=== PATIENT | female | born 1955 | race Caucasian/White ===

== ENCOUNTER 2018-04-13 13:03 | Outpatient (CLI) | payer MEDICARE ==
--- NOTE | 2018-04-13 14:14 | XRAY Report ---
Procedure Date: 04/13/2018 Accession Number: [id number] / [id number] Procedure: XR - Lumbar Spine 2 View CPT Code: FULL RESULT: EXAM: Lumbar Spine 2 View DATE: 04/13/2018 1:27 PM CLINICAL HISTORY: CHRONIC LBP WITH SCIATICA COMPARISON: 10/04/2015. TECHNIQUE: 2 views. FINDINGS: The patient is status post L4-S1 posterior lumbar fusion with stable anterolisthesis of L4 on L5 and no evidence of hardware failure. Thoracolumbar S-shaped scoliosis is stable. Advanced degenerative changes including facet arthropathy and endplate changes appear similar to 2016. There is marked atherosclerosis of the abdominal aorta. The visualized bowel gas pattern is unremarkable. IMPRESSION: Stable appearance of the lumbar spine including scoliosis and anterolisthesis of L4 on L5 status post L4-S1 posterior fusion. RADIA
== END 2018-04-13 13:04 | disposition home or self-care (01) ==
LOC: DI 13:03
PROVIDERS: ATTEND Family Medicine
DX: M47.896 Other spondylosis, lumbar region (principal); M51.36 Other intervertebral disc degeneration, lumbar region; M43.16 Spondylolisthesis, lumbar region; M41.85 Other forms of scoliosis, thoracolumbar region
CPT/HCPCS: 72100

== ENCOUNTER 2018-11-04 13:55 | Outpatient (CLI) | payer MEDICARE | END 2018-11-04 13:56 | disposition home or self-care (01) | LOC: DI 13:55 | PROVIDERS: ATTEND Family Medicine | DX: R00.2 Palpitations (principal); R07.9 Chest pain, unspecified; Z13.6 Encounter for screening for cardiovascular disorders; Z53.9 Procedure and treatment not carried out, unspecified reason ==

== ENCOUNTER 2018-11-18 09:58 | Outpatient (CLI) | payer MEDICARE ==
[2018-11-18] MEDS ORDERED: REGADENOSON 0.4 MG/5 ML SYRINGE IVP ONE ×2 (10:06→15:53)
[2018-11-18] MEDS ORDERED: AMINOPHYLLINE 250 MG/10 ML VIAL ONE (10:07)
--- NOTE | 2018-11-18 12:03 | CARDIAC PROCEDURE NOTE ---
DATE OF SERVICE: 11/18/2018 Physician: Deborah Gregorio MD, [facility] INDICATIONS: Chest pain. CARDIAC RISK FACTORS: Obesity, postmenopausal status, very remote ex-smoker. PROCEDURE: After signing informed consent, the patient underwent a Lexiscan pharmaceutical stress test with nuclear myocardial perfusion imaging. RESTING HEART RATE: 72. PEAK HEART RATE: 91. RESTING BLOOD PRESSURE: 129/72. PEAK BLOOD PRESSURE: 150/75. Lexiscan was infused per protocol. The patient developed mild flushing and mild shortness of breath. Her saturation was 98% on room air at this point. She did not experience her typical chest pain. The SOB symptom subsided after 4 minutes. RESTING ELECTROCARDIOGRAM: Normal sinus rhythm, right atrial enlargement, left IVCD. ELECTROCARDIOGRAM AT PEAK: No ischemic changes by EKG criteria. SUMMARY 1. The patient had mild shortness of breath, but no chest pain during this pharmaceutical stress test. 2. No ischemic changes by EKG criteria on this pharmaceutical stress test. 3. Nuclear images are reported separately. TD: 11/18/2018 11:34 MTDD
--- NOTE | 2018-11-19 14:01 | Nuclear Medicine Report ---
Reason: CHEST PAIN, PALPITATIONS Procedure Date: 11/19/2018 Accession Number: [id number] / [id number] Procedure: NM - Myocardial Perfusion STR/RST CPT Code: FULL RESULT: EXAM: SINGLE-ISOTOPE PHARMACOLOGICAL STRESS TEST WITH REGADENOSON. SINGLE-ISOTOPE AND TWO-DAY REST/STRESS MYOCARDIAL PERFUSION SCANS WITH TOMOGRAPHIC IMAGING, QUANTITATIVE ANALYSIS, WALL MOTION ANALYSIS AND CALCULATION OF EJECTION FRACTION. EXAM DATE: 11/19/2018 11:28 AM. CLINICAL HISTORY: CHEST PAIN, PALPITATIONS. COMPARISON: None available. TECHNIQUE: A pharmacological stress was performed with the infusion of 0.4 mg regadenoson per protocol. According to protocol, 25.9 mCi of Tc-99m sestamibi was injected for stress myocardial perfusion scan. Motion correction was applied when appropriate. The following day after the intravenous administration of 26.9 mCi of Tc-99m sestamibi, a rest myocardial perfusion scan was done with tomography. Motion correction was applied when appropriate. Gated tomographic images were obtained for wall motion analysis and computation of left ventricular ejection fraction. FINDINGS: On visual analysis, there is a partially fixed and partially reversible moderate severity defect involving the anterior and anteroseptal wall. Computer analysis. Summed stress score 10 Summed rest score 2 Summed difference score 8 Wall motion analysis demonstrates septal hypokinesis. The left ventricular end-diastolic volume is 70 cc. The left ventricular end-systolic volume is 12 cc. The left ventricular ejection fraction is calculated to be 82%. IMPRESSION: 1. On visual analysis, partially fixed and partially reversible moderate severity defect in the anterior and anteroseptal orellana. On computer analysis, moderately abnormal study with moderate ischemia. Based on visual analysis, the degree of reversibility is suspected to be overestimated on the computer generated analysis. 2. Left ventricular ejection fraction of >65%. 3. There is apparent septal hypokinesis. 4. Normal left ventricular cavity size, no change with stress. RADIA
== END 2018-11-18 09:59 | disposition home or self-care (01) ==
LOC: DI 09:58
PROVIDERS: ATTEND Family Medicine
DX: R94.39 Abnormal result of other cardiovascular function study (principal); R07.9 Chest pain, unspecified; R00.2 Palpitations; R06.02 Shortness of breath
CPT/HCPCS: 78452; 93016; 93017; 93018; A9500; J2785

== ENCOUNTER 2020-12-22 16:41 | Outpatient (CLI) | payer MEDICARE ==
--- NOTE | 2020-12-22 17:17 | CT Report ---
PROCEDURE: Abdomen/Pelvis WO INDICATIONS: RIGHT FLANK PAIN TECHNIQUE: Noncontrast 5 mm thick sections acquired from the diaphragms to the symphysis. 5 mm coronal and sagi ttal reformats were then performed. For radiation dose reduction, the following was used: automated exposure control, adjustment of mA and/or kV according to patient size. COMPARISON: None. FINDINGS: Image quality: Excellent. ABDOMEN: Lung bases: Lung bases are clear. Heart size is normal. Solid organs: Liver and spleen are normal in size. Gallbladder contains 2 small dependent layering gallstones, without evidence of acute cholecystitis or adjacent biliary obstruction Pancreas is norm al in contours. No adrenal nodules. Kidneys are normal in size, without hydronephrosis or nephrolit hiasis. Peritoneum and bowel: Unenhanced bowel loops demonstrate normal wall thickness and caliber. No free fluid or air. Nodes and vessels: No retroperitoneal or mesenteric adenopathy by size criteria. Aorta and inferior vena cava are normal in caliber. Miscellaneous: No ventral hernias. PELVIS: Genitourinary: Bladder wall thickness is normal. Miscellaneous: No inguinal hernias or adenopathy. Bones: No suspicious bony lesions. No vertebral body compression fractures. IMPRESSION: A urinary tract stone is not found, no urinary tract inflammation. A source of right-sided flank pain is not identified. Note is made of 2 right-sided gallstones, small in size measuring approximately 3 mm-4 mm each within the gallbladder lumen which shows no evidence of obstruction or inflammation. Reviewed by: Abdon Gamboa MD on 12/22/2020 5:16 PM PDT Approved by: Abdon Gamboa MD on 12/22/2020 5:16 PM PDT Station ID: [id number]
== END 2020-12-22 16:42 | disposition home or self-care (01) ==
LOC: DI 16:41
PROVIDERS: ATTEND Family Medicine
DX: R10.9 Unspecified abdominal pain (principal); K80.20 Calculus of gallbladder without cholecystitis without obstruction

== ENCOUNTER 2023-02-13 12:24 | Outpatient (CLI) | payer MEDICARE ==
--- NOTE | 2023-02-13 21:38 | Ultrasound Report ---
PROCEDURE: Ankle Brachial Index INDICATIONS: POLYNEUROPATHY TECHNIQUE: Ankle-brachial indices were obtained bilaterally and recorded. COMPARISONS: None. FINDINGS: Right ankle brachial index (JAIRON): 1.16 Left ankle brachial index (JAIRON): 1.21 Healing potential: Ankle pressures >55 mm Hg in non-diabetics and >80 mm Hg in diabetics are likely to achieve primary h ealing of ischemic foot ulcers. Toe pressures >30 mm Hg are likely to achieve primary healing of ischemic foot ulcers, toe or transme tatarsal amputations. IMPRESSION: Normal bilateral JAIRON as above. Reviewed by: Jonn Ordoñez MD on 02/13/2023 9:37 PM PDT Approved by: Jonn Ordoñez MD on 02/13/2023 9:37 PM PDT Station ID: [id number]
== END 2023-02-13 12:25 | disposition home or self-care (01) ==
LOC: DI 12:24
PROVIDERS: ATTEND Family Medicine
DX: G62.9 Polyneuropathy, unspecified (principal)
CPT/HCPCS: 93922

== ENCOUNTER 2023-08-06 13:42 | Outpatient (CLI) | payer MEDICARE | END 2023-08-06 23:59 | disposition EMS.NT | LOC: EMS 13:42 | DX: Z03.89 Encounter for observation for other suspected diseases and conditions ruled out (principal) ==

== ENCOUNTER 2024-04-08 15:10 | Outpatient (CLI) | payer MEDICARE ==
--- NOTE | 2024-04-09 12:41 | MRI Report ---
PROCEDURE: Shoulder LT WO INDICATIONS: L SHOULDER PAIN TECHNIQUE: Noncontrast oblique coronal T2 fast spin echo with fat saturation, oblique sagittal T1 spin echo and T2 fast spin echo with fat saturation, axial T1 spin echo and T2 fast spin echo with fat saturation t hrough the shoulder. COMPARISON: None. FINDINGS: Image quality: Excellent. Rotator cuff: There is prior rotator cuff tendon repair with postsurgical changes. Suggestion of full -thickness rupture involving distal supraspinatus at its insertion on humeral head with up to 2.8 cm medial retraction of torn tendon fibers to the level of acromium is seen. Low-grade articular surface partial-thickness involving distal infraspinatus at its insertion on humeral head is noted. Low-grad e intrasubstance partial thickness tear involving distal subscapularis is seen. Moderate to severe see praspinatus muscle atrophy is seen on sagittal images. Mild infraspinatus muscle atrophy is also not ed. Bones and bursae:/Superior migration of humeral head in relation to glenoid is noted. Expected postsu rgical widening of acromioclavicular joint. Postsurgical changes also seen in anterior and lateral as pect of humeral head. No acute fracture or dislocation. Moderate to severe glenohumeral joint osteoar thritic changes are seen. There is moderate amount of joint fluid and subacromial subdeltoid bursal f luid. No definite loose bodies. Capsule and soft tissues: The global signal abnormality throughout left glenoid labrum is seen sugges tive of extensive labral tear. There is proximal long head of biceps tenodesis with intact biceps ten don to the level of surgery. The rotator interval appears normal, without fibrosis. The coracohumer al ligament is normal in thickness. IMPRESSION: 1. Prior rotator cuff tendon repair with postsurgical changes. Moderate to severe glenohumeral joint osteoarthritis. Expected postsurgical widening of acromioclavicular joint. No acute fracture or dislo cation. Slight superior migration of humeral head in relation to glenoid. Moderate joint effusion and subacromial subdeltoid bursal fluid, no gross loose bodies. 2. High-grade partial to full-thickness rupture involving distal supraspinatus at its insertion on hu meral head with up to 2.8 cm medial retraction of torn tendon fibers to the level of acromion. Modera te to severe supraspinatus muscle atrophy. 3. Low-grade articular surface partial-thickness involving distal infraspinatus. Low-grade intrasubst ance partial thickness tear involving distal subscapularis. Mild infraspinatus muscle atrophy. 4. Suggestion of extensive left glenoid labral tear. 5. Prior proximal long head of biceps tenodesis with intact biceps tendon to the level of surgery. Reviewed by: Jonn Luke MD on 04/09/2024 12:40 PM PDT Approved by: Jonn Luke MD on 04/09/2024 12:40 PM PDT Station ID: [id number]
== END 2024-04-08 15:11 | disposition home or self-care (01) ==
LOC: DI 15:10
PROVIDERS: ATTEND Family Medicine
DX: M19.012 Primary osteoarthritis, left shoulder (principal); M71.812 Other specified bursopathies, left shoulder; M25.412 Effusion, left shoulder; M62.512 Muscle wasting and atrophy, not elsewhere classified, left shoulder; M75.112 Incomplete rotator cuff tear or rupture of left shoulder, not specified as traumatic

== ENCOUNTER 2024-05-24 10:03 | Outpatient (CLI) | payer MEDICARE ==
[2024-05-24] MEDS ORDERED: iohexoL-300 100 ML VIAL ONE (10:21)
[2024-05-24] MEDS ORDERED: DIATRIZOATE MEGLU/DIATRIZO SOD 30 ML BOTTLE PO ONE (10:21)
[2024-05-24] MEDS: iohexoL-300 100 ML VIAL IVP ONE (13:07)
[2024-05-24] MEDS: DIATRIZOATE MEGLU/DIATRIZO SOD 30 ML BOTTLE PO ONE (13:08)
--- NOTE | 2024-05-24 16:03 | CT Report ---
PROCEDURE: Abdomen/Pelvis W INDICATIONS: LLQ PAIN CONTRAST: Omni 300 100ml TECHNIQUE: After the administration of intravenous contrast, a CT scan of the abdomen and pelvis was performed. Images were recorded and evaluated at appropriate window settings. Reformats: coronal and sagittal. F or radiation dose reduction, the following was used: automated exposure control, adjustment of mA and /or kV according to patient size. COMPARISON: CT abdomen/pelvis 12/22/2020. FINDINGS: Image quality: Diagnostic. Lower chest: Unremarkable. Liver: No solid mass. Gallbladder: Gallbladder is mildly distended and contains a few small calcified gallstones. No surrou nding inflammatory changes are seen. Biliary tree: No intrahepatic or extrahepatic dilation, accounting for age. Spleen: No splenomegaly. Pancreas: No pancreatic ductal dilation. Adrenals: No adrenal nodule. Kidneys and ureters: No hydronephrosis. No renal cystic lesion which requires follow up. No solid mas s. Stomach, bowel and peritoneum: No gastric or small bowel dilation. 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 No abnormal wall thickening. No pathologic free fluid. Multiple diverticula are seen in the colon without signs of acute diverticulitis. Moderate to large volume of colonic stool. Lymph nodes: No central or retroperitoneal adenopathy. Vessels: No infrarenal aortic aneurysm. Patent portal vein. Moderate aortic atherosclerotic ossificat ions. PELVIS Reproductive organs: Unremarkable. Bladder: No abnormal wall thickening, accounting for underdistention. Pelvic lymph nodes: No pelvic adenopathy by size criteria. Bones: No aggressive osseous abnormality. Postsurgical changes are seen in the lumbar spine. Multilev el degenerative changes. No acute osseous abnormality identified. Other: Fat-containing right lower abdominal ventral hernia is noted. IMPRESSION: 1.Moderate to large volume of colonic stool. Recommend correlation for constipation. Otherwise, no so urce for the reported left lower quadrant pain identified. 2.Colonic diverticulosis without signs of acute diverticulitis. 3.Cholelithiasis with mild gallbladder distention. No surrounding inflammatory changes. If there is c oncern for acute cholecystitis consider ultrasound evaluation. 4.Right lower abdominal fat-containing ventral hernia. Reviewed by: Crispin Cowan MD on 05/24/2024 3:02 PM [place] Approved by: Crispin Cowan MD on 05/24/2024 3:02 PM [place] Station ID: [id number]
== END 2024-05-24 10:04 | disposition home or self-care (01) ==
LOC: DI 10:03
PROVIDERS: ATTEND Family Medicine
DX: K57.30 Diverticulosis of large intestine without perforation or abscess without bleeding (principal); K80.20 Calculus of gallbladder without cholecystitis without obstruction; K43.9 Ventral hernia without obstruction or gangrene; Z98.84 Bariatric surgery status
CPT/HCPCS: 74177; Q9963; Q9967